=== PATIENT | female | born 1990 | race Two or more races ===

== ENCOUNTER 2019-09-02 14:31 | Emergency (ER) | payer OTHER ==
[~2019-09-02] VITALS: Ht 160 cm; Wt 86.6 kg
[2019-09-02 14:54] VITALS: BP 124/76
[2019-09-02] MEDS ORDERED: Methocarbamol 500mg tab ORAL ONE (15:00)
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
[2019-09-02] MEDS ORDERED: IBUPROFEN600 M1 ORAL (16:36)
[2019-09-02] MEDS ORDERED: LIDODERM700 M1 TOPIC (16:36)
[2019-09-02] MEDS ORDERED: ROBAXIN-500MG ORAL (16:36)
[2019-09-02 16:44] VITALS: BP 124/76
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
== END 2019-09-02 16:45 | disposition home or self-care (01) ==
LOC: EMR 15:21
DX: S39.012A Strain of muscle, fascia and tendon of lower back, initial encounter (principal); V43.52XA Car driver injured in collision with other type car in traffic accident, initial encounter; Y92.410 Unspecified street and highway as the place of occurrence of the external cause
CPT/HCPCS: 72020; 81025; 99283